=== PATIENT | female | born 1980 | race Two or more races ===

== ENCOUNTER 2025-04-27 15:25 | Emergency (ER) | payer MEDICAID, SELFPAY ==
[2025-04-27 15:56] VITALS: BP 123/82; PULSE 78; RESP 18; TEMP 36.9; O2SAT 99; BMI 28.5
--- NOTE | 2025-04-27 16:02 | XR_ITS ---
Examination: CT brain head without contrast. 2-D sagittal coronal reconstructions Date and time of exam: April 27, 2025, 1634 hours INDICATIONS: Headache blurred vision today CTDI: vol (mGy): 48.4 DLP: (mGycm): 923 Technique: Multiple CT axial sections of the brain have been obtained, 5 mm slice thickness. Contrast has not been administered. 2-D sagittal, coronal reconstructions have been obtained Low dose protocols were performed. One or more of the following dose reduction techniques were used; automated exposure control, adjustment of the mA and/or KV according to patient size, use of iterative reconstruction technique. Findings: No significant ventricular enlargement. Intra-axial or extra-axial hemorrhage density is not seen. No mass effect or midline shift Basal cisterns are not remarkable. Fourth ventricle is midline. Cranial vault intact. Impression: Negative for acute hemorrhage, mass effect or midline shift Advise clinical correlation and follow-up accordingly
--- NOTE | 2025-04-27 16:03 | PD.EDRME ---
Rapid Medical Screening Exam [facility] Arrival date/time: 04/27/25 15:25 44-year-old female with no known medical history presents to the emergency room with a chief complaint of right sided blurry vision, sensation of swelling to the right side of her face, and a headache x 2 days I have greeted and performed a focused initial assessment of this patient. A comprehensive ED assessment and evaluation of the patient, analysis of all test results, and completion of the medical decision making process will be conducted by additional ED providers. 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
[2025-04-27 16:30] LABS: Basophils # (Auto) 0.0 Thou/mm3 (0.0-0.2); Basophils % (Auto) 0 % (0-2.5); Eosinophils # (Auto) 0.1 Thou/mm3 (0.0-0.5); Eosinophils % (Auto) 2 % (0-10); Hematocrit 38.3 % (36.0-46.0); Hemoglobin 13.5 g/dL (12.0-16.0); Immature Granulocytes Auto 0.01 Thou/mm3 (0.00-0.00); Lymphocytes # (Auto) 2.1 Thou/mm3 (1.0-4.8); Lymphocytes % (Auto) 38 % (10-50); Mean Corpuscular HGB Conc 35.2 g/dl (31.0-37.0); Mean Corpuscular Hemoglobin 32.9 pg (25.0-35.0); Mean Corpuscular Volume 93 fL (80-100); Monocytes # (Auto) 0.4 Thou/mm3 (0.0-0.8); Monocytes % (Auto) 7 % (0-12); Neutrophils # (Auto) 2.9 Thou/mm3 (1.8-7.7); Neutrophils % (Auto) 52 % (37-80); Nucleated Red Blood Cell # 0.00 Thou/mm3 (0.00-0.00); Nucleated Red Blood Cell % 0 /100 WBC (0); Platelet Count 238 Thou/mm3 (140-440); RDW Standard Deviation 41.2 fL (36.4-46.3); Red Blood Count 4.10 Miln/mm3 (4.00-5.20); White Blood Count 5.5 Thou/mm3 (3.6-11.0)
[2025-04-27 17:09] LABS: Sed Rate (ESR) 2 mm/hr (0-20)
[2025-04-27 18:46] LABS: Alanine Aminotransferase 18 U/L (10-49); Albumin, Serum 4.7 gm/dL (3.5-5.0); Albumin/Globulin Ratio 1.8 (1.2-2.2); Alkaline Phosphatase 55 U/L (46-116); Anion Gap 9 (7-16); Aspartate Amino Transferase 17 U/L (0-34); BUN/Creatinine Ratio 10 Ratio (12-20); Bilirubin,Total 0.5 mg/dL (0.3-1.2); Blood Urea Nitrogen 6 mg/dL (9-23); C-Reactive Protein < 0.5 mg/dL (0.0-0.9); Calcium 10.1 mg/dL (8.3-10.6); Calcium (Corrected) 10.1 mg/dL (8.5-10.1); Carbon Dioxide 26.0 mMol/L (20.0-31.0); Chloride 107 mMol/L (98-107); Creatinine (Component) 0.6 mg/dL (0.6-1.3); Estimated Creatinine Clearance 110.2 mL/min (>60); Globulin 2.6 gm/dL (2.3-3.5); Glucose 131 mg/dL (74-106); Osmolality,Calculated 282 (275-295); Potassium 3.8 mMol/L (3.4-5.1); Sodium 142 mMol/L (136-145); Total Protein 7.3 gm/dL (5.7-8.2); eGFR > 60 See Note
[2025-04-27 19:30] VITALS: BP 126/89; PULSE 60; RESP 18; TEMP 36.8; O2SAT 100
[2025-04-27 19:34] VITALS: BP 126/89; PULSE 66; RESP 18; TEMP 36.8; O2SAT 100
--- NOTE | 2025-04-27 19:51 | EDNOTE_ITS ---
ED General RME/HPI General Chief complaint: Headache Stated complaint: HIT R) SIDE OF MOUTH, SEVERE WIGGINS, DIZZY Time Seen by Provider: 04/27/25 15:32 Arrival date/time: 04/27/25 15:25 CC: Headache with blurry vision HPI she has pressure to the back of her head onset was this morning, mild relief with ibuprofen. The blurry mentions it has since resolved. Patient denies any light sensitivity noise sensitivity nausea vomiting blurred vision seeing spots chest pain shortness of breath or difficulty breathing. No other complaints at this time. RME / HPI RME / HPI narrative: 04/27/25 15:25 44-year-old female with no known medical history presents to the emergency room with a chief complaint of right sided blurry vision, sensation of swelling to the right side of her face, and a headache x 2 days I have greeted and performed a focused initial assessment of this patient. A comprehensive ED assessment and evaluation of the patient, analysis of all test results, and completion of the medical decision making process will be conducted by additional ED providers. Exam: GCS of 15, pupils are PERRLA EOMs are intact Clear bilateral lung sounds Strong and regular rhythm Impression: Barnes's palsy/headache/tension headache Related Data Previous Rx's ?Medication ?Instructions ?Recorded ibuprofen 600 mg tablet 600 mg PO Q6H #30 tabs 06/19 tramadol 50 mg tablet 50 mg PO BID PRN pain #8 tab s 06/19/23 meloxicam 7.5 mg tablet 7.5 mg PO QDAY #10 tabs 04/05 09/26 Allergies Allergy/AdvReac Type Severity Reaction Status Date / Time No Known Allergies Allergy Verified 04/27/25 15:29 Review of Systems Review of Systems Narrative Review of Systems: GEN: No fever, no chills, no weight loss EYES: No discharge, no visual changes, no pain HEENT: No ear pain, no congestion, no sore throat PULM: No shortness of breath, no cough, no congestion CV: No chest pain, no dyspnea on exertion, no palpitations GI: No nausea, no vomiting, no diarrhea, no pain, no constipation : No frequency, no urgency, no dysuria MUSC/SKEL: No joint pain, no back pain SKIN: No rash PSYCH: No hallucinations, no depression HEME/LYMPH: No easy bleeding or bruising tendencies NEURO: No weakness, + headache ED Exam Narrative Physical exam: [General: Not in any acute distress Head normocephalic HEENT: Within acceptable limits Neck is supple nontender Chest equal chest rise nontender to palpation Respiratory: Clear to auscultation no wheezes crackles or rubs CV: Rate rhythm is regular no murmurs rubs or clicks Abdomen is soft nontender no masses positive bowel sounds all 4 quadrants Back: No CVA tenderness no spinous process tenderness from cervical spine t horacic and lumbar spine Skin: Intact no petechiae rash induration ulceration or crepitus Extremities: Moving all extremity against resistance cap refill less than 2 seconds neurosensory intact Neuro: Awake alert oriented x3 Glascow coma 15 no focal deficits, cranial nerves II through XII are grossly intact. Course Course Course Narrative: Patient thinks this occurred after hitting her teeth while cleaning her house that she has not had percent sure. However the patient is awake alert oriented nontoxic-appearing not in any acute distress there is no acute finding will discharge the patient home with meloxicam after Toradol injection. Quality Measures none Orders Category Date Time Status CT head/brain wo con Stat Exams 04/27/25 16:02 Completed CBC Stat Lab 04/27/25 16:16 Completed CMP [Comprehensive Metabolic Panel] Stat Lab 04/27/25 16:16 Completed CRP [C-Reactive Protein] Stat Lab 04/27/25 16:16 Completed ESR [Sed Rate (ESR)] Stat Lab 04/27/25 16:16 Completed Ketorolac Inj [Toradol Inj] Med 04/27/25 19:54 Discontinued 15 mg IM X1 ONE Vital Signs Vital signs: Vital Signs Temperature 98.5 F 04/27/25 15:56 Pulse Rate 78 04/27/25 15:56 Respiratory Rate 18 04/27/25 15:56 Blood Pressure 123/82 04/27/25 15:56 Pulse Oximetry (%) 99 04/27/25 15:56 Oxygen Delivery Method Room Air 04/27/25 15:56 Discharge Plan Plan Patient Disposition: HOME (Self Care) Patient condition on transfer: Stable Prescriptions/Referrals Prescriptions/Med Rec: New meloxicam 7.5 mg tablet 7.5 mg PO QDAY Qty: 10 0RF No Action tramadol 50 mg tablet 50 mg PO BID PRN (Reason: pain) Qty: 8 0RF ibuprofen 600 mg tablet 600 mg PO Q6H Qty: 30 0RF Referrals: Betsy Cabrera MD [Primary Care Provider] - In 1 week Problem List Clinical Impression: Headache Patient/Caregiver Discharge Instructions Other Activity Instructions:: Take the medications as prescribed, follow-up with your primary care doctor if there are worsening of symptoms in spite of the medications return to the emergency room for reevaluation. Education Materials: Self-Care for Headaches Print Language: Greenlandic Stand Alone Forms: Juany Award Info., Work/School Release, Patient Portal Info Letter WILMAN/GABRIELA Supervising Physician WILMAN/GABRIELA Supervising Physician: Davin gonzales ENP [facility] Clinical Information Provided by: patient Medical Records reviewed [facility] Meds/Rx considered, not ordered None Labs/Rad/Tests considered, not ordered None Chronic Illness/Social Conditions which may negatively complicate care or outcome(s)-explain: None or not applicable EKG EKG not done Labs Labs: interpreted by vt Lab(s) Interpretation(s): CBC shows no acute leukocytosis anemia thrombocytopenia CMP shows no significant electrolyte imbalances renal impairment transaminitis or T. bili elevation. Imaging Imaging interpretation: interpreted by me Imaging Interpretation(s): CT of the head is negative for any acute finding requires emergent or immediate intervention. Medication Administration(s) Medication Administration History Discontinued Medications Ketorolac Tromethamine (Ketorolac Inj 30 Mg/Ml Vial) 15 mg IM X1 ONE Stop: 04/27/25 19:55 Last Admin: 04/27/25 20:07 Dose: 15 mg Documented By: MIN
[2025-04-27] MEDS: KETOROLAC INJ 30 MG/ML VIAL 15 MG IM (20:07)
== END 2025-04-27 20:15 | disposition home or self-care (01) ==
PROVIDERS: Nurse Practitioner Family; Emergency Provider Emergency Medicine; PCP Obstetrics & Gynecology
DX: R51.9 Headache, unspecified (principal); H53.8 Other visual disturbances
CPT/HCPCS: 36415; 70450; 80053; 85025; 85652; 86140; 96372; 99283; J1885

== ENCOUNTER → 2025-05-11 | Outpatient (CLI) | payer MEDICAID, SELFPAY ==
--- NOTE | 2025-05-11 11:00 | XR_ITS ---
Examination: Breast ultrasound, unilateral, right Date and time of exam: [place], 2024, 1124 hours TECHNIQUE: Grayscale sonographic images breast including all 4 quadrants nipple retroareolar region and axillary region INDICATION: Outside mammogram 03/02/2025 8 mm focal asymmetry central right breast, mild left breast pain noticed beginning 1 month ago Technique: Real-time randolph scale ultrasonographic imaging performed sonographic images right breast 10:00 circumscribed nodule 8 x 7 mm 9:00 cyst 4 x 4 mm Retroareolar cyst 3 x 3 mm IMPRESSION: BI-RADS Category 3: Probably benign findings.
--- NOTE | 2025-05-11 11:30 | XR_ITS ---
Examination: Diagnostic digital mammography, unilateral, right Computer aided detection 3-D breast Tomosynthesis, unilateral Date and time of exam: 05/11/2025, 11:33 a.m. Comparisons: September 2018, February 2025 Indications: Further evaluation of focal asymmetry seen on side screening exam Technique: Nonmagnified MLO, CC views of the right breast have been obtained, reconstructed from 3-D Tomosynthesis images. R2 computer aided detection program utilized for evaluation of suspicious masses and/or abnormal calcifications. 3-D Tomosynthesis images obtained. Technologist: Findings: The breasts are heterogeneously dense, which may obscure small masses. No evidence of abnormal masses or suspicious calcifications. Previously described abnormality does not persist on spot compression views and represents superimposition of normal fibroglandular tissue. Impression: BI-RADS category 1: Negative findings (within normal) Recommend 1 year follow-up mammogram
== END | disposition home or self-care (01) ==
LOC: CDIM 11:11
PROVIDERS: Referring Provider Obstetrics & Gynecology; Visit Provider Obstetrics & Gynecology
DX: R92.311 Mammographic fatty tissue density, right breast (principal)
CPT/HCPCS: 76641; 77061; 77065; G0279